=== PATIENT | female | born 1975 | race American Indian/Alaskan Native ===

== ENCOUNTER 2019-01-22 11:44 | Emergency (ER) | payer BC ==
--- NOTE | 2019-01-22 11:59 | Emergency Department Report ---
Blank Doc - Documentation Documentation: 43-year-old female that presents with dizziness and was sent by complex director. This initial assessment/diagnostic orders/clinical plan/treatment(s) is/are subject to change based on patient's health status, clinical progression and re- assessment by fellow clinical providers in the ED. Further treatment and workup at subsequent clinical providers discretion. Patient/guardians urged not to elope from the ED as their condition may be serious if not clinically assessed and managed. Initial orders include: 1- Patient sent to [facility] for further evaluation and treatment 2- labs 3- UA 4- EKG
[2019-01-22 12:01] VITALS: BP 108/70
--- NOTE | 2019-01-22 12:48 | XRay Report ---
CHEST 2 VIEWS INDICATION / CLINICAL INFORMATION: Lightheadedness/Dizziness. COMPARISON: None available. FINDINGS: SUPPORT DEVICES: None. HEART / MEDIASTINUM: No significant abnormality. LUNGS / PLEURA: No significant pulmonary or pleural abnormality. .No pneumothorax. ADDITIONAL FINDINGS: No significant additional findings. IMPRESSION: 1. No acute findings. Signer Name: Andreas Simons MD Signed: 01/22/2019 12:43 PM Workstation Name: [id number]
[2019-01-22 15:23] LABS: Basophils % (Auto) 1.2 % (0.0-1.8); Eosinophils # (Auto) 0.1 K/mm3 (0.0-0.4); Eosinophils % (Auto) 1.4 % (0.0-4.3); Hematocrit 35.9 % (30.3-42.9); Hemoglobin 11.5 gm/dl (10.1-14.3); Lymphocytes # (Auto) 1.1 K/mm3 (1.2-5.4); Lymphocytes % (Auto) 29.9 % (13.4-35.0); Mean Corpuscular HGB Conc 32 % (30-34); Mean Corpuscular Volume 92 fl (79-97); Monocytes # (Auto) 0.3 K/mm3 (0.0-0.8); Monocytes % (Auto) 9.1 % (0.0-7.3); Platelet Count 266 K/mm3 (140-440); Red Blood Count 3.91 M/mm3 (3.65-5.03); Red Cell Distribution Width 19.5 % (13.2-15.2)
[2019-01-22 15:52] LABS: Alanine Aminotransferase 15 units/L (7-56); Albumin 4.3 g/dL (3.9-5); BUN/Creatinine Ratio 10; Blood Urea Nitrogen 6 mg/dL (7-17); Calcium 9.1 mg/dL (8.4-10.2); Hemolysis Index 1
[2019-01-22 16:43] LABS: Bilirubin,Urine NEG (Negative); Blood,Urine NEG (Negative); Color,Urine Yellow (Yellow); Mucus,Urine FEW /HPF; Protein,Urine <15 mg/dL mg/dL (Negative); RBC,Urine < 1.0 /HPF (0.0-6.0); Urobilinogen,Urine < 2.0 mg/dL (<2.0); WBC,Urine < 1.0 /HPF (0.0-6.0)
--- NOTE | 2019-01-22 16:46 | Emergency Department Report ---
ED Dizziness HPI - General Chief Complaint: Dizziness Stated Complaint: DIZZY/SOB Time Seen by Provider: 01/22/19 11:58 Source: patient Mode of arrival: Ambulatory Limitations: No Limitations - History of Present Illness Initial Comments: This is a 43-year-old female who presents to the emergency room with shortness of breath and dizziness since October intermittently. Patient states she was scheduled for an elective cosmetic surgery and unable to receive it due to severe anemia. Patient states she followed up with her primary care doctor at [facility] and diagnosed with iron deficiency. She was started on iron tablets and referred to cardiology. Patient states she had a cardiac workup with the normal EKG and stress test. 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 She reports shortness of breath and dizziness is worse with exertion. She denies palpitations, chest pain, weakness, cough, fever, chills, or recent travel. MD Complaint: dizziness Onset/Timin -: week(s) Timing: gradual onset Description: lightheadedness History of Same: Yes History of Trauma: No Severity: mild Improves With: remaining still, rehydration Worsens With: exertion Associated Symptoms: denies other symptoms - Related Data Allergies Allergy/AdvReac Type Severity Reaction Status Date / Time No Known Allergies Allergy Unverified 01/22/19 11:46 ED Review of Systems ROS: Stated complaint: DIZZY/SOB Other details as noted in HPI Constitutional: denies: chills, fever Respiratory: SOB with exertion. denies: cough, shortness of breath, wheezing Cardiovascular: denies: chest pain, palpitations Gastrointestinal: denies: abdominal pain, nausea, diarrhea Skin: denies: rash, lesions Neurological: vertigo. denies: headache, weakness, paresthesias Psychiatric: denies: anxiety, depression ED Past Medical Hx - Past Medical History Previous Medical History?: Yes Additional medical history: Anemia - Social History Smoking Status: Never Smoker Substance Use Type: None ED Physical Exam - General Limitations: No Limitations General appearance: alert, in no apparent distress - Respiratory Respiratory exam: Present: normal lung sounds bilaterally. Absent: respiratory distress - Cardiovascular Cardiovascular Exam: Present: regular rate, normal rhythm. Absent: systolic mu rmur, diastolic murmur, rubs, gallop - GI/Abdominal GI/Abdominal exam: Present: soft, normal bowel sounds. Absent: distended, tenderness, guarding, rebound, rigid - Neurological Exam Neurological exam: Present: alert, oriented X3 - Psychiatric Psychiatric exam: Present: normal affect, normal mood - Skin Skin exam: Present: warm, dry, intact, normal color. Absent: rash ED Course Vital Signs 01/22/19 01/22/19 11:58 16:03 Temperature 98.4 F Pulse Rate 85 Respiratory 20 18 Rate Blood Pressure 108/70 O2 Sat by Pulse 98 99 Oximetry ED Medical Decision Making - Lab Data Result diagrams: 01/22/19 14:52 01/22/19 14:52 Lab Results 01/22/19 01/22/19 01/22/19 Range/Units 14:52 14:52 16:00 WBC 3.7 L (4.5-11.0) K/mm3 RBC 3.91 (3.65-5.03) M/mm3 Hgb 11.5 (10.1-14.3) gm/dl Hct 35.9 (30.3-42.9) % MCV 92 (79-97) fl MCH 29 (28-32) pg MCHC 32 (30-34) % RDW 19.5 H (13.2-15.2) % Plt Count 266 (140-440) K/mm3 Lymph % (Auto) 29.9 (13.4-35.0) % [place] % (Auto) 9.1 H (0.0-7.3) % Eos % (Auto) 1.4 (0.0-4.3) % Baso % (Auto) 1.2 (0.0-1.8) % Lymph # 1.1 L (1.2-5.4) K/mm3 [place] # 0.3 (0.0-0.8) K/mm3 Eos # 0.1 (0.0-0.4) K/mm3 Baso # 0.0 (0.0-0.1) K/mm3 Seg Neutrophils % 58.4 (40.0-70.0) % Seg Neutrophils # 2.2 (1.8-7.7) K/mm3 Sodium 141 (137-145) mmol/L Potassium 3.9 (3.6-5.0) mmol/L Chloride 106.9 (98-107) mmol/L Carbon Dioxide 20 L (22-30) mmol/L Anion Gap 18 mmol/L BUN 6 L (7-17) mg/dL Creatinine 0.6 L (0.7-1.2) mg/dL Estimated GFR > 60 ml/min BUN/Creatinine Ratio 10 % Glucose 84 (65-100) mg/dL Calcium 9.1 (8.4-10.2) mg/dL Total Bilirubin 0.20 (0.1-1.2) mg/dL AST 19 (5-40) units/L ALT 15 (7-56) units/L Alkaline Phosphatase 58 (35-129) units/L Troponin T < 0.010 (0.00-0.029) ng/mL Total Protein 7.7 (6.3-8.2) g/dL Albumin 4.3 (3.9-5) g/dL Albumin/Globulin Ratio 1.3 % Urine Color Yellow (Yellow) Urine Turbidity Slightly-cloudy (Clear) Urine pH 5.0 (5.0-7.0) Ur Specific [place] 1.012 (1.003-1.030) Urine Protein <15 mg/dl (Negative) mg/dL Urine Glucose (UA) Neg (Negative) mg/dL Urine Ketones Neg (Negative) mg/dL Urine Blood Neg (Negative) Urine Nitrite Neg (Negative) Urine Bilirubin Neg (Negative) Urine Urobilinogen < 2.0 (<2.0) mg/dL Ur Leukocyte Esterase Neg (Negative) Urine WBC (Auto) < 1.0 (0.0-6.0) /HPF Urine RBC (Auto) < 1.0 (0.0-6.0) /HPF U Epithel Cells (Auto) 2.0 (0-13.0) /HPF Urine Mucus Few /HPF - EKG Data -: No EKG Interpreted by Me (EKG interpreted by obtained) EKG shows normal: sinus rhythm Rate: normal - Radiology Data Radiology results: report reviewed CHEST 2 VIEWS INDICATION / CLINICAL INFORMATION: Lightheadedness/Dizziness. COMPARISON: None available. FINDINGS: SUPPORT DEVICES: None. HEART / MEDIASTINUM: No significant abnormality. LUNGS / PLEURA: No significant pulmonary or pleural abnormality. .No pneumothorax. ADDITIONAL FINDINGS: No significant additional findings. IMPRESSION: 1. No acute findings. - Medical Decision Making Patient was examined by me. Patient is nontoxic appearing and stable. Vitals are normal. Obtained labs and a chest x-ray. Mild leukopenia, H&H normal, all other labs are unremarkable. Chest x-ray negative for acute cardiopulmonary findings. This is viral syndrome. Patient informed of results. Instructed to continue taking iron tablets as instructed by her primary care doctor at [facility]. Follow up with her primary care doctor in the next 3-5 days or return to the ER with worsening symptoms. Patient discharged home in s table condition. Critical care attestation.: If time is entered above; I have spent that time in minutes in the direct care of this critically ill patient, excluding procedure time. ED Disposition Clinical Impression: Dizziness, Viral syndrome Disposition: DC- TO HOME OR SELFCARE Is pt being admited?: No Condition: Stable Instructions: Dizziness (ED), Viral Syndrome (ED) Additional Instructions: Follow-up with your primary care doctor. Referrals: [facility] [Provider Group] - 3-5 Days [facility] [Provider Group] - 3-5 Days [facility] [Provider Group] - 3-5 Days Forms: Work/School Release Form(ED) Time of Disposition: 17:11
== END 2019-01-22 17:18 | disposition home or self-care (01) ==
LOC: ED 11:44
DX: B34.9 Viral infection, unspecified (principal); R42 Dizziness and giddiness
CPT/HCPCS: 36415; 71046; 80053; 81001; 84484; 85025; 93005; 93010